=== PATIENT | male | born 1975 | race Caucasian/White ===

== ENCOUNTER 2018-09-10 22:51 | Observation (INO) | payer OTHER ==
[2018-09-11] MEDS ORDERED: Acetaminophen 325 MG TAB PO PRN (02:06)
[2018-09-11] MEDS ORDERED: Ondansetron PF 4 MG/2 ML Vial IVP PRN (02:06)
[2018-09-11] MEDS ORDERED: Lorazepam 2 MG/ML VIAL SLOW IVP PRN (02:09)
--- NOTE | 2018-09-11 03:47 | HP ---
PRIMARY CARE DOCTOR: The patient lives in senior care. CODE STATUS: Full code. TIME OF EVALUATION: 2:00 a.m. CHIEF COMPLAINT: Recurrent seizures. HISTORY OF PRESENT ILLNESS: This is a [id number] male patient. The patient is an inmate. 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 The patient came to the hospital after having reportedly recurrent seizures x5, with no clear triggers. No alleviating factors. The patient reported he has had some changes in medication and medication because there was a diagnosis of pseudoseizures and then his doctor in senior care had put him back on his medication. The patient has also reported left-sided weakness. Teleneurology saw the patient and has reported no indication for any tPA. It looks like a complex seizures versus pseudoseizures by the physical exam, we will call Neurology in the morning for any further evaluation and workup. Symptoms were severe. Symptoms started suddenly, associated with left-sided weakness. REVIEW OF SYSTEMS: CONSTITUTIONAL: No fever, chills, or generalized weakness. RESPIRATORY: No cough, sputum production, or shortness of breath. CARDIOVASCULAR: No chest pain or palpitation. GASTROINTESTINAL: No nausea. No vomiting, diarrhea, or abdominal pain. TAKER OFF HEMP FIBER: The patient has no dizziness. The patient reported seizures x5 with residual left-sided weakness. GENITOURINARY: No burning on urination. EXTREMITIES: No leg swelling. All other systems were reviewed and negative except for the findings mentioned above. PAST MEDICAL HISTORY: History of epilepsy, hypertension, and asthma. PAST SURGICAL HISTORY: Dental surgery, right leg surgery. PSYCHIATRIC HISTORY: No previous psych history. SOCIAL HISTORY: The patient denies alcohol use. Former drug user. Abuse methamphetamine. The patient has smoking history. FAMILY HISTORY: Reviewed and noncontributory for current presentation. ALLERGIES: KNOWN ALLERGIES TO TEGRETOL. REPORTED MEDICATIONS: Lisinopril, Dilantin, ibuprofen, and amoxicillin. PHYSICAL EXAMINATION: VITAL SIGNS: On presentation, blood pressure 125/87 with heart rate 71, respiratory rate was 18, temperature 97.8, pain was 2/10, and oxygen saturation 98 on room air. GENERAL APPEARANCE: The patient is alert, oriented, not in acute distress. HEENT: Eyes, normal conjunctivae. Moist oral mucosa. Anicteric. No JVD. RESPIRATORY: Bilateral air entry. No rales. No wheezes. Symmetric expansion. CARDIOVASCULAR: Normal rate, regular rhythm. No murmurs. No gallops. No edema. ABDOMEN: Soft. Normal bowel sounds. MUSCULOSKELETAL: Baseline range of motion and strength. No tenderness. SKIN: Warm, intact. No pallor. No rash. No redness. VASCULAR: Peripheral pulses are brisk. Capillary refill seems to be intact. NEURO: The patient has left-sided weakness, seizures. PSYCH: The patient is in good mood. No anxiety. Optimal judgment. LABORATORY DATA: Labs were reviewed. The patient has white count 5.9, hemoglobin 13, and platelet count 253. Sodium 134, potassium 4.1, chloride 100, carbon dioxide 28, anion gap 10, glucose 91, BUN 18, creatinine 0.9, GFR 124. LFTs were negative. DIAGNOSTIC STUDIES: Chest x-ray showed right lower lobe infiltrate. Findings might be suggestion of aspiration pneumonia. ASSESSMENT AND PLAN: The patient will be placed in the hospital with following medical problems: 1. He has a complex seizure with residual left-sided weakness. The patient had been given loading dose of Keppra. As per ER report, will place on Keppra b.i.d. Neurology has been consulted given the possible history of pseudoseizures and for medication adjustment. The patient is stable as of now. We will treat seizures symptomatically with Ativan IV p.r.n. 2. History of hypertension. Blood pressure is being controlled, reconcile home medications, adjust as needed. 3. History of asthma. This is chronic, stable, no need for any acute intervention. 4. Deep venous thrombosis prophylaxis. 5. Risk assessment, the patient is at high risk due to sudden onset in neurological change. Job ID: [id number]
[2018-09-11 04:53] LABS: #Basophils 0.1 thou/uL (0.0-0.2); #Eosinphils 0.6 thou/uL (0.0-0.7); #Lymphocytes 1.6 thou/uL (1.20-3.40); #Monocytes 0.5 thou/uL (0.11-0.59); #Neutrophils 2.9 thou/uL (1.40-6.50); %Basophils 1.2 % (0.0-1.0); %Eosinophils 10.5 % (0.0-10.0); %Lymphocytes 27.8 % (21.0-51.0); %Monocytes 9.2 % (0.0-10.0); %Neutrophils 51.4 % (42.0-75.0); Mean Corpuscular HGB CONC 33.7 g/dL (32.0-36.0); Mean Corpuscular Hemoglobin 29.6 pg (27.0-31.0); Mean Corpuscular Volume 87.7 fL (78.0-98.0); Mean Platelet Volume 8.3 fL (7.4-10.4); Platelet Count 222 thou/uL (130-400); RBC Distribution Width 12.5 % (11.5-14.5); Red Blood Cell (RBC) Count 4.39 mill/uL (4.70-6.10); White Blood Cell (WBC) Count 5.6 thou/uL (4.8-10.8)
[2018-09-11 05:13] LABS: Anion Gap 11 mmol/L (10-20); BUN (Urea Nitrogen) 16 mg/dL (8.9-20.6); Calc. Creatinine Clearance 0 mL/min (70-130); Calcium 9.5 mg/dL (7.8-10.44); Carbon Dioxide 29 mmol/L (22-29); Chloride 102 mmol/L (98-107); Estimated GFR-MDRD 76; Glucose 194 mg/dL (70-105); Potassium 3.9 mmol/L (3.5-5.1); Sodium 138 mmol/L (136-145)
[2018-09-11] MEDS: Piperacillin/Tazobactam 3.375 GM in Sodium Chloride 0.9% 100 ML IVPB SCH ×3 (05:40→15:45)
[2018-09-11 06:39] VITALS: BMI 25.7
[2018-09-11] MEDS ORDERED: Enoxaparin Sodium 40 MG/0.4 ML SYRINGE SC SCH (09:00)
[2018-09-11] MEDS: levETIRAcetam 500 MG TAB PO SCH ×2 (09:15→20:08)
--- NOTE | 2018-09-11 12:28 | PDOC.EVN ---
Event Note - Event Note Event Note: Chart reviewed. Pt seen. Denies seizures today morning. VSS. Awaiting neurology input, will follow.
[2018-09-11 15:39] VITALS: BP 116/80; TEMP 98.4
--- NOTE | 2018-09-11 20:50 | CON ---
DATE OF CONSULTATION: 09/11/2018 CONSULTING PHYSICIAN: Hospitalist Service. IMPRESSION: Recurrent reported generalized seizure. PLAN: 1. Continue Dilantin 200 mg twice daily. 2. Continue Keppra 500 mg twice daily. 3. He can return to the unit. HISTORY OF PRESENT ILLNESS: Mr. Durham is a 43-year-old man who reports developing epilepsy in the 1980s after he suffered a head injury. He reportedly was in a coma for several weeks upon recovering from his trauma. He developed seizures sometime later and was placed on treatment. He reports that he has an aura of facial flushing prior to losing consciousness. Reportedly, there is generalized tonic colonic activity. He has some postictal confusion and muscle soreness. There has been no tongue trauma. He had a seizure at the unit and was transferred here. His lab work upon arrival here was unremarkable. He had a Dilantin level drawn at an outside facility that was 8.3. He has had an EEG since admission, which was normal. PAST MEDICAL HISTORY: Otherwise negative. ALLERGIES: CARBAMAZEPINE. SOCIAL HISTORY: He is an inmate. FAMILY HISTORY: Noncontributory. MEDICATIONS: Reviewed. REVIEW OF SYSTEMS: Otherwise unremarkable. PHYSICAL EXAMINATION: GENERAL: He is a well-nourished middle-aged man in restraints. VITAL SIGNS: Blood pressure 116/80, pulse 82, respirations 16, temperature 98.4. HEENT: Within normal limits. NECK: Supple. EXTREMITIES: No cyanosis. NEUROLOGIC: He is alert and appropriate. His exam is nonfocal. LABORATORY DATA: CBC and serum chemistries were unremarkable. SUMMARY: This is a middle-aged man with reported history of seizures. We do not have any peripheral lab information close to the time of his attack to confirm whether there are any metabolic changes to corroborate his story. Otherwise, he would take a prolonged EEG monitoring to get a definitive answer. I would just continue combination of these anticonvulsants and follow him clinically. Job ID: [id number]
--- NOTE | 2018-09-12 02:43 | DIS ---
DATE OF ADMISSION: 09/11/2018 DATE OF DISCHARGE: 09/11/2018 PRIMARY CARE PROVIDER: Unknown. DISCHARGE DIAGNOSIS: Recurrent seizures. HOSPITAL COURSE: Mr. Durham is a pleasant 43-year-old gentleman who was admitted to the hospital on 09/11/2018, for recurrent seizures. Please refer to Dr. Davenport's history and physical note dated 09/11/2018, for further details. He was seen by Neurology Service. His phenytoin dose was increased to 200 mg 2 times a day. He was also started on Keppra 500 mg 2 times a day. He has been cleared for discharge back to the custodial system by Neurology Service. DISCHARGE MEDICATIONS: 1. Amoxicillin 500 mg three times a day. 2. Ibuprofen 800 mg daily. 3. Lisinopril 20 mg daily. 4. Keppra 500 mg 2 times a day. 5. Dilantin 200 mg 2 times a day. DISCHARGE DESTINATION: Nursing Home. Job ID: [id number]
[2018-09-12] MEDS ORDERED: Lisinopril 20 MG TAB PO SCH (09:00)
--- NOTE | 2018-09-12 09:45 | EEG ---
Referring Physician: Jerry MODI EEG # [id number] TEST TYPE: ROUTINE PORTABLE INPATIENT REPORT: AN EEG USING THE INTERNATIONAL TEN-TWENTY SYSTEM OF ELECTRODE PLACEMENT WAS PERFORMED. The waking background is a 9 hertz alpha frequency. The patient remained awake throughout the study. Hyperventilation and photic stimulation were unremarkable. No epileptiform features were noted. IMPRESSION: THIS IS A NORMAL AWAKE EEG. Chocolate Dipper: NANDO Dual Rate Supervisor: THERESA GARDNER
== END 2018-09-11 20:16 ==
LOC: ERS 22:51 → EEVIPCON 22:51 → 2SE 09-11 00:20
PROVIDERS: ADMIT Hospitalist; ATTEND Hospitalist
DX: G40.909 Epilepsy, unspecified, not intractable, without status epilepticus (principal); R53.1 Weakness; I10 Essential (primary) hypertension; J45.909 Unspecified asthma, uncomplicated; F15.11 Other stimulant abuse, in remission; Z79.1 Long term (current) use of non-steroidal anti-inflammatories (NSAID); Z79.2 Long term (current) use of antibiotics; Z79.899 Other long term (current) drug therapy; Z88.8 Allergy status to other drugs, medicaments and biological substances
CPT/HCPCS: 36415; 80048; 85025; 95816; 95819; 96365; 96366; 99285; G0378; J1650; J2543; J7050

== ENCOUNTER 2019-03-11 13:42 | Observation (INO) | payer OTHER ==
[2019-03-11] MEDS ORDERED: Acetaminophen 325 MG TAB PO PRN (18:07)
[2019-03-11] MEDS ORDERED: Lorazepam 2 MG/ML VIAL SLOW IVP PRN (18:11)
[2019-03-11 18:37] VITALS: BMI 28.6
[2019-03-11 19:08] LABS: Troponin I 0.013 ng/mL (< 0.028)
[2019-03-11] MEDS: levETIRAcetam 500 MG TAB PO SCH (21:47)
--- NOTE | 2019-03-12 00:44 | HP ---
CHIEF COMPLAINT: Seizures. HISTORY OF PRESENT ILLNESS: This patient is a 43-year-old male who presented in transfer from [facility]. This patient has a history of seizure disorder. He was last admitted to this facility in September or August of this year. 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 He was seen in consultation by Neurology, where it was concerning tat the patient has not had labs drawn proximal to the seizure to look for physiologic changes. He had an EEG which was unremarkable, and the patient was subsequently discharged back to the senior care system on Keppra 500 mg b.i.d. and Dilantin 200 mg b.i.d. He continued on his lisinopril. The patient reports he has not been referred to any neurologist since that time and medications have been unchanged. He says that the senior care has said he has been noncompliant, but he has been getting direct observational therapy with his medications. 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 He was seen at [facility] where his labs were largely unremarkable. Dilantin level was not obtained. CT was negative. The patient had additional history from senior care staff that they could not initially find a pulse after they had found him down in the senior care and CPR was performed briefly and he was transferred to the hospital. The patient reports that he feels completely normal now with the exception of having a slight headache in the left frontal area above his left eye and he feels like he has a small floater in his vision that was not there prior. The patient was subsequently transferred to this facility. He also reports another episode of a seizure about 5 to 6 weeks ago, at which time he was also seen in [facility] and essentially signed against medical advice to return to the senior care. At that time, apparently, his medication levels were little low and he received loading doses. REVIEW OF SYSTEMS: All systems reviewed, all pertinent positives and negatives noted in history of present illness. Denies specifically fevers, chills, or other findings of infection. PAST MEDICAL HISTORY: Epilepsy, hypertension, and asthma. PAST SURGICAL HISTORY: Dental surgery and right leg surgery. PSYCHIATRIC HISTORY: No previous psych history. SOCIAL HISTORY: The patient is a former drug user, nondrinker. He is a [facility] inmate, apparently has some history of smoking and methamphetamine use. FAMILY HISTORY: Noncontributory. ALLERGIES: TEGRETOL. CURRENT MEDICATIONS: 1. Lisinopril 10 mg daily. 2. Keppra 500 mg b.i.d. 3. Dilantin 200 mg. PHYSICAL EXAMINATION: VITAL SIGNS: BP 152/94, pulse 72, respirations 16, O2 saturation 94% on room air. GENERAL APPEARANCE: Age-appropriate male, in no distress. Awake and alert, pleasant, and cooperative. HEENT: PERRL. No OP lesions. NECK: Supple and symmetric. HEART: Regular rate and rhythm. No murmurs, gallops, or rubs. LUNGS: Clear to auscultation bilaterally. No wheezes or rales. ABDOMEN: Soft, nontender, and nondistended. Positive bowel sounds. No masses. No organomegaly. EXTREMITIES: No cyanosis, clubbing, or edema. NEUROLOGICAL: The patient appears to be fully intact. Cranial nerves are intact. He has normal spontaneous movement and strength in all extremities. PSYCH: Normal affect and behavior. LABORATORY DATA: Labs from [facility] reviewed. Dilantin levels are therapeutic. CT head, negative. IMPRESSION AND PLAN: 1. Recurrent seizure. Honestly, the patient would not need to be admitted to the hospital other than the fact that there is this question about him not having a pulse initially. I suspect that is incorrect and simply pulse was missed while the patient was having a seizure postictal. Nonetheless, we will keep him overnight. He is amenable to that plan. We will keep him on telemetry, get some serial troponins. We will continue with his usual seizure medications and give a p.r.n. for recurrent seizures. I have also asked for a Dilantin level to be checked. Unfortunately, we are 10 hours out from the seizure activity at least, so it may not be helpful if it is negative. Nonetheless, there is concern that the patient may be having pseudoseizures, especially given the normal EEG that he had previously. We will not reconsult Neurology unless there is some other change that occurs between now and tomorrow. If he rules out and has no significant findings on telemetry, anticipate he can be discharged back to the senior care with no significant change in his medications. 2. Hypertension. Continue with the lisinopril dose. Job ID: [id number]
[2019-03-12 00:47] LABS: Troponin I Less than 0.010 ng/mL (< 0.028)
[2019-03-12 07:37] LABS: #Eosinphils 0.5 thou/uL (0.0-0.7); #Lymphocytes 1.5 thou/uL (1.20-3.40); #Monocytes 0.6 thou/uL (0.11-0.59); #Neutrophils 3.3 thou/uL (1.40-6.50); %Basophils 0.8 % (0.0-1.0); %Eosinophils 7.8 % (0.0-10.0); %Lymphocytes 25.2 % (21.0-51.0); %Monocytes 10.3 % (0.0-10.0); %Neutrophils 55.9 % (42.0-75.0); Mean Corpuscular HGB CONC 34.2 g/dL (32.0-36.0); Mean Corpuscular Hemoglobin 29.3 pg (27.0-31.0); Mean Corpuscular Volume 85.5 fL (78.0-98.0); Mean Platelet Volume 7.8 fL (7.4-10.4); Platelet Count 210 thou/uL (130-400); Red Blood Cell (RBC) Count 4.77 mill/uL (4.70-6.10); White Blood Cell (WBC) Count 5.8 thou/uL (4.8-10.8)
[2019-03-12 07:53] LABS: Anion Gap 12 mmol/L (10-20); BUN (Urea Nitrogen) 8 mg/dL (8.9-20.6); Calc. Creatinine Clearance 146 mL/min (70-130); Calcium 9.3 mg/dL (7.8-10.44); Carbon Dioxide 26 mmol/L (22-29); Chloride 105 mmol/L (98-107); Estimated GFR-MDRD Greater than 90; Glucose 99 mg/dL (70-105); Potassium 3.9 mmol/L (3.5-5.1); Sodium 139 mmol/L (136-145)
[2019-03-12 08:13] VITALS: TEMP 97.8
[2019-03-12] MEDS: levETIRAcetam 500 MG TAB PO SCH (08:53)
[2019-03-12] MEDS ORDERED: Lisinopril 20 MG TAB PO SCH (09:00)
[2019-03-12 11:15] VITALS: BP 141/95
[2019-03-12] MEDS ORDERED: Promethazine 25 MG TAB PO SCH (11:30)
[2019-03-12] MEDS ORDERED: HumaLOG 300 UNITS/3 ML VIAL SC SCH (13:15)
--- NOTE | 2019-03-12 19:40 | DIS ---
DATE OF ADMISSION: 03/11/2019 DATE OF DISCHARGE: 03/12/2019 DISCHARGE DISPOSITION: Half-Way/custodial. PRIMARY DISCHARGE DIAGNOSIS: Breakthrough seizure, resolved. SECONDARY DISCHARGE DIAGNOSES: 1. Hypertension. 2. History of asthma. PROCEDURES DONE DURING HOSPITALIZATION: H and H of 14 and 40, platelet count 210. Troponin x2 negative. BUN 8, creatinine 0.8. Prolactin levels were 28.26. DISCHARGE MEDICATIONS: 1. Lisinopril 10 mg twice daily. 2. Motrin p.r.n. for pain. 3. Keppra 500 mg twice daily. 4. Dilantin 400 mg q.a.m. ALLERGIES: CARBAMAZEPINE. DISCHARGE PLAN: The patient is to follow up with primary care physician at the longterm/custodial facility. He also needs referral to neurologist at the longterm facility. BRIEF COURSE DURING HOSPITALIZATION: The patient initially was sent from [facility] for breakthrough seizure. He has known history of seizure disorder and is on Keppra and Dilantin. There were some issues about him not being noncompliant with his seizure medications. He was under observation on stroke unit for close monitoring. The patient did not have any further seizures. He was placed on his home dose of Dilantin and Keppra. He has done remarkably well. He was given liquid Dilantin, which has caused him some itching, which the patient states he is not comfortable taking. He is hemodynamically and neurologically stable. He is ambulating in the room. He will be shortly discharged back to longterm facility. I have advised him to follow up with a neurologist at the longterm facility. Please note I have seen and examined patient on the day of discharge. He is otherwise stable for transfer to longterm facility. Job ID: [id number] [id number]
== END 2019-03-12 17:00 ==
LOC: ERS 13:42 → 2SE 18:22
PROVIDERS: ADMIT Internal Medicine; ATTEND Internal Medicine
DX: G40.909 Epilepsy, unspecified, not intractable, without status epilepticus (principal); I10 Essential (primary) hypertension; J45.909 Unspecified asthma, uncomplicated; E11.9 Type 2 diabetes mellitus without complications; F15.11 Other stimulant abuse, in remission; Z87.891 Personal history of nicotine dependence; Z79.899 Other long term (current) drug therapy; Z88.8 Allergy status to other drugs, medicaments and biological substances; Z91.14 Patient's other noncompliance with medication regimen
CPT/HCPCS: 36415; 36416; 80048; 84146; 84484; 85025; 99285; G0378; Q0169